=== PATIENT | female | born 1945 | race Asian ===

== ENCOUNTER 2017-03-18 17:19 | Inpatient (IN) | payer MEDICAID ==
[~2017-03-18] VITALS: Ht 160 cm; Wt 53.8 kg
[2017-03-18] MEDS ORDERED: ESOM20CA31 PO (17:33)
[2017-03-18] MEDS ORDERED: SIMV-260 PO (17:33)
[2017-03-18] MEDS ORDERED: AMLO-512 PO (17:33)
[2017-03-18] MEDS ORDERED: ASCO500 PO (17:33)
[2017-03-18] MEDS ORDERED: LOSA50TA37 PO (17:33)
[2017-03-18] MEDS ORDERED: LISI-661 PO (17:33)
[2017-03-18 18:22] LABS: BASOPHILS % (AUTO) 0.5 % (0.0-2.0); EOSINOPHILS % (AUTO) 0.7 % (1.0-6.0); HEMATOCRIT 37.3 % (36-46); HEMOGLOBIN 12.8 g/dL (12.0-16.0); LYMPHOCYTES # (AUTO) 1.2 K/uL (1.0-4.8); MEAN CORPUSCULAR HEMOGLOBIN 30.3 pg (26.0-34.0); MEAN CORPUSCULAR HGB CONC 34.2 G/dL (31.0-37.0); MEAN CORPUSCULAR VOLUME 88 fL (80-100); MONOCYTES # (AUTO) 0.7 K/uL (0.1-1.0); MONOCYTES % (AUTO) 9.9 % (2.0-9.0); NEUTROPHILS # (AUTO) 4.7 K/uL (1.8-7.7); NEUTROPHILS % (AUTO) 70.9 % (40.0-70.0); PLATELET COUNT (AUTO) 388 K/uL (150-450); RED BLOOD CELL COUNT(AUTO) 4.22 MIL/uL (4.00-5.20); RED CELL DISTRIBUTION WIDTH 12.2 % (11.5-14.5)
[2017-03-18 18:42] LABS: ALANINE AMINOTRANSFERASE 40 U/L (12-78); ALBUMIN 4.4 g/dL (3.4-5.0); ALKALINE PHOSPHATASE 57 U/L (46-116); ANION GAP 7 mmol/L (8-16); ASPARTATE AMINOTRANSFERASE 36 U/L (15-37); BILIRUBIN,TOTAL 0.3 mg/dL (0.1-1.0); CALCIUM, TOTAL 9.2 mg/dL (8.8-10.5); CARBON DIOXIDE 31 mmol/L (22-29); CHLORIDE 83 mmol/L (98-107); GLOMERULAR FILTR. RATE CALC > 60 mL/min (>60); GLUCOSE,RANDOM 127 mg/dL (70-110); LIPASE 226 U/L (73-393); UREA NITROGEN, BLOOD 10 mg/dL (7-18)
[2017-03-18 18:50] LABS: POTASSIUM 2.5 mmol/L (3.5-5.1); SODIUM SERUM 121 mmol/L (136-145)
[2017-03-18] MEDS ORDERED: POTASSIUM CHLORIDE 20 MEQ ER TABLET PO ONE (19:00)
[2017-03-18] MEDS ORDERED: SODIUM CHLORIDE 0.9% 1,000 ML IV ONE ×2 (19:00→23:13)
[2017-03-18 19:34] LABS: THYROID STIMULATING HORMONE 1.46 uIU/mL (0.36-3.74)
[2017-03-18] MEDS ORDERED: ONDANSETRON HCL 4 MG/2 ML VIAL IVP PRN (20:00)
[2017-03-18] MEDS ORDERED: ACETAMINOPHEN 325 MG TABLET PO PRN (20:00)
[2017-03-18] MEDS ORDERED: 0.9% SODIUM CHLORIDE 10 ML SYRINGE IVP PRN ×2 (20:00→23:45)
[2017-03-18 21:04] VITALS: BP 122/74
[2017-03-18] MEDS ORDERED: POTASSIUM CHLORIDE 20 MEQ ER TABLET PO PRN (22:30)
[2017-03-18 22:56] LABS: ANION GAP 7 mmol/L (8-16); CALCIUM, TOTAL 9.4 mg/dL (8.8-10.5); CARBON DIOXIDE 30 mmol/L (22-29); CHLORIDE 88 mmol/L (98-107); CREATININE 0.64 mg/dL (0.60-1.30); GLOMERULAR FILTR. RATE CALC > 60 mL/min (>60); GLUCOSE,RANDOM 113 mg/dL (70-110); PHOSPHORUS 3.6 mg/dL (2.5-4.9); SODIUM SERUM 125 mmol/L (136-145); UREA NITROGEN, BLOOD 9 mg/dL (7-18)
[2017-03-18 23:05] LABS: POTASSIUM 2.6 mmol/L (3.5-5.1)
[2017-03-18] MEDS ORDERED: SODIUM CHLORIDE 0.9% 0 ML IV ONE (23:12)
[2017-03-18 23:14] VITALS: BP 107/67
[2017-03-18] MEDS ORDERED: SODIUM CHLORIDE 0.9% 250 ML IV ONE (23:19)
[2017-03-18] MEDS: POTASSIUM CHL 10 MEQ/WATER 50 ML IV PRN (23:35)
[2017-03-19] MEDS: POTASSIUM CHL 10 MEQ/WATER 50 ML IV PRN ×3 (01:45→04:13)
[2017-03-19 05:00] VITALS: BP 122/62
[2017-03-19 06:52] LABS: BASOPHILS # (AUTO) 0.02 K/uL (0.00-0.20); BASOPHILS % (AUTO) 0.3 % (0.0-2.0); EOSINOPHILS # (AUTO) 0.08 K/uL (0.00-0.70); EOSINOPHILS % (AUTO) 1.64 % (1.0-6.0); HEMATOCRIT 36.3 % (36-46); HEMOGLOBIN 12.2 g/dL (12.0-16.0); LYMPHOCYTES # (AUTO) 1.2 K/uL (1.0-4.8); LYMPHOCYTES % (AUTO) 22.7 % (22.0-44.0); MEAN CORPUSCULAR HEMOGLOBIN 30.1 pg (26.0-34.0); MEAN CORPUSCULAR HGB CONC 33.7 G/dL (31.0-37.0); MEAN CORPUSCULAR VOLUME 89 fL (80-100); MONOCYTES # (AUTO) 0.5 K/uL (0.1-1.0); MONOCYTES % (AUTO) 10.1 % (2.0-9.0); NEUTROPHILS # (AUTO) 3.3 K/uL (1.8-7.7); NEUTROPHILS % (AUTO) 65.3 % (40.0-70.0); PLATELET COUNT (AUTO) 385 K/uL (150-450); RED BLOOD CELL COUNT(AUTO) 4.06 MIL/uL (4.00-5.20); RED CELL DISTRIBUTION WIDTH 12.3 % (11.5-14.5)
[2017-03-19 07:31] LABS: POTASSIUM,URINE RANDOM 31 mmol/L (12-75); SODIUM,URINE RANDOM 47 mmol/l (20-110)
[2017-03-19 07:56] VITALS: BP 123/62
[2017-03-19 08:00] LABS: APPEARANCE,URINE CLEAR (CLEAR); BILIRUBIN,URINE NEGATIVE (NEGATIVE); GLUCOSE, URINE (UA) NEGATIVE (NEGATIVE); KETONES,URINE NEGATIVE (NEGATIVE); LEUKOCYTE ESTERASE ,URINE NEGATIVE (NEGATIVE); NITRATE,URINE NEGATIVE (NEGATIVE); OCCULT BLOOD,URINE SMALL (NEGATIVE); PH,URINE 7.5 (5.0-8.0); PROTEIN,URINE NEGATIVE (NEGATIVE); UROBILINOGEN,URINE 0.2 mg/dL (<=1.0)
[2017-03-19 08:16] LABS: ANION GAP 5 mmol/L (8-16); CARBON DIOXIDE 29 mmol/L (22-29); CHLORIDE 93 mmol/L (98-107); GLOMERULAR FILTR. RATE CALC > 60 mL/min (>60); GLUCOSE,RANDOM 117 mg/dL (70-110); POTASSIUM 3.2 mmol/L (3.5-5.1); SODIUM SERUM 127 mmol/L (136-145); UREA NITROGEN, BLOOD 8 mg/dL (7-18)
[2017-03-19 08:19] LABS: WBC,URINE None Seen /HPF (0-5)
[2017-03-19 08:20] LABS: BACTERIA,URINE None Seen /HPF (None Seen); SQUAMOUS EPITHELIAL CELL,UR Rare /LPF (None Seen)
[2017-03-19] MEDS: AmLODIPine BESYLATE 10 MG TABLET PO SCH (09:00)
[2017-03-19] MEDS: LISINOPRIL 10 MG TABLET PO SCH (09:00)
[2017-03-19] MEDS: LOSARTAN POTASSIUM 50 MG TABLET PO SCH (09:01)
[2017-03-19] MEDS: ASCORBIC ACID 500 MG TABLET PO SCH (09:01)
[2017-03-19] MEDS: POTASSIUM CHLORIDE 20 MEQ ER TABLET PO PRN ×2 (09:03→14:58)
[2017-03-19 12:04] VITALS: BP 107/57
[2017-03-19 14:08] LABS: CREATININE,URINE RANDOM 52.5 mg/dL (30.0-125.0)
[2017-03-19 14:16] LABS: POTASSIUM 3.3 mmol/L (3.5-5.1); THYROID STIMULATING HORMONE 2.13 uIU/mL (0.36-3.74)
[2017-03-19 14:20] LABS: APPEARANCE,URINE CLEAR (CLEAR); BILIRUBIN,URINE NEGATIVE (NEGATIVE); GLUCOSE, URINE (UA) NEGATIVE (NEGATIVE); KETONES,URINE NEGATIVE (NEGATIVE); LEUKOCYTE ESTERASE ,URINE NEGATIVE (NEGATIVE); NITRATE,URINE NEGATIVE (NEGATIVE); OCCULT BLOOD,URINE TRACE (NEGATIVE); PH,URINE 7.5 (5.0-8.0); PROTEIN,URINE NEGATIVE (NEGATIVE); UROBILINOGEN,URINE 0.2 mg/dL (<=1.0)
[2017-03-19 14:34] LABS: WBC,URINE 0-2 /HPF (0-5)
[2017-03-19 14:35] LABS: BACTERIA,URINE Rare /HPF (None Seen); SQUAMOUS EPITHELIAL CELL,UR Few /LPF (None Seen)
[2017-03-19 15:43] VITALS: BP 103/59
[2017-03-19 19:37] VITALS: BP 105/64
[2017-03-19] MEDS: SIMVASTATIN 20 MG TABLET PO SCH (20:22)
[2017-03-19 23:46] VITALS: BP 98/56
[2017-03-20 04:50] VITALS: BP 104/55
[2017-03-20 05:57] LABS: BASOPHILS % (AUTO) 0.7 % (0.0-2.0); EOSINOPHILS % (AUTO) 3.4 % (1.0-6.0); HEMATOCRIT 34.5 % (36-46); HEMOGLOBIN 11.9 g/dL (12.0-16.0); LYMPHOCYTES # (AUTO) 1.7 K/uL (1.0-4.8); LYMPHOCYTES % (AUTO) 34.1 % (22.0-44.0); MEAN CORPUSCULAR HEMOGLOBIN 30.6 pg (26.0-34.0); MEAN CORPUSCULAR HGB CONC 34.4 G/dL (31.0-37.0); MEAN CORPUSCULAR VOLUME 89 fL (80-100); MONOCYTES # (AUTO) 0.6 K/uL (0.1-1.0); MONOCYTES % (AUTO) 11.7 % (2.0-9.0); NEUTROPHILS # (AUTO) 2.5 K/uL (1.8-7.7); NEUTROPHILS % (AUTO) 50.1 % (40.0-70.0); PLATELET COUNT (AUTO) 342 K/uL (150-450); RED BLOOD CELL COUNT(AUTO) 3.88 MIL/uL (4.00-5.20); RED CELL DISTRIBUTION WIDTH 12.6 % (11.5-14.5)
[2017-03-20 06:04] LABS: ANION GAP 4 mmol/L (8-16); CALCIUM, TOTAL 8.8 mg/dL (8.8-10.5); CARBON DIOXIDE 28 mmol/L (22-29); CHLORIDE 95 mmol/L (98-107); CREATININE 0.87 mg/dL (0.60-1.30); GLOMERULAR FILTR. RATE CALC > 60 mL/min (>60); GLUCOSE,RANDOM 89 mg/dL (70-110); POTASSIUM 3.9 mmol/L (3.5-5.1); SODIUM SERUM 127 mmol/L (136-145); UREA NITROGEN, BLOOD 16 mg/dL (7-18)
[2017-03-20 07:30] VITALS: BP 130/74
[2017-03-20] MEDS: LOSARTAN POTASSIUM 50 MG TABLET PO SCH (08:45)
[2017-03-20] MEDS: ESOMEPRAZOLE MAG TRIHYDRATE 20 MG CAPSULE PO SCH (08:45)
[2017-03-20] MEDS: LISINOPRIL 10 MG TABLET PO SCH (08:45)
[2017-03-20] MEDS: AmLODIPine BESYLATE 10 MG TABLET PO SCH (08:45)
[2017-03-20] MEDS: ASCORBIC ACID 500 MG TABLET PO SCH (08:45)
[2017-03-20 12:00] VITALS: BP 102/58
[2017-03-20 16:06] VITALS: BP 106/65
[2017-03-20 19:10] VITALS: BP 111/64
[2017-03-20] MEDS: SIMVASTATIN 20 MG TABLET PO SCH (20:07)
[2017-03-20 23:01] VITALS: BP 106/60
[2017-03-21 04:00] VITALS: BP 114/65
[2017-03-21 07:44] VITALS: BP 133/95
[2017-03-21 08:00] LABS: ANION GAP 6 mmol/L (8-16); CALCIUM, TOTAL 9.1 mg/dL (8.8-10.5); CARBON DIOXIDE 30 mmol/L (22-29); CHLORIDE 98 mmol/L (98-107); CREATININE 0.76 mg/dL (0.60-1.30); GLOMERULAR FILTR. RATE CALC > 60 mL/min (>60); GLUCOSE,RANDOM 91 mg/dL (70-110); SODIUM SERUM 134 mmol/L (136-145); UREA NITROGEN, BLOOD 20 mg/dL (7-18)
[2017-03-21] MEDS: LOSARTAN POTASSIUM 50 MG TABLET PO SCH (09:11)
[2017-03-21] MEDS: LISINOPRIL 10 MG TABLET PO SCH (09:11)
[2017-03-21] MEDS: ESOMEPRAZOLE MAG TRIHYDRATE 20 MG CAPSULE PO SCH (09:11)
[2017-03-21] MEDS: ASCORBIC ACID 500 MG TABLET PO SCH (09:11)
[2017-03-21] MEDS: AmLODIPine BESYLATE 10 MG TABLET PO SCH (09:11)
[2017-03-21 11:39] VITALS: BP 120/68
== END 2017-03-21 13:34 | disposition home or self-care (01) | DRG 422 ==
LOC: EMS 17:21 → 6N 20:00
PROVIDERS: ADMIT Family Medicine; ATTEND Family Medicine
DX: E87.1 Hypo-osmolality and hyponatremia (principal); E86.0 Dehydration; I10 Essential (primary) hypertension; E78.5 Hyperlipidemia, unspecified; E87.6 Hypokalemia; K21.9 Gastro-esophageal reflux disease without esophagitis; Z79.899 Other long term (current) drug therapy
CPT/HCPCS: 82533; 82570; 83735; 83935; 84100; 84132; 84133; 84300; 84443; 93005; 96360; 99285; J3480; J7030; J7050